=== PATIENT | female | born 1975 | race Caucasian/White ===

== ENCOUNTER 2016-08-12 16:10 | Emergency (ER) | payer OTHER ==
[~2016-08-12] VITALS: Ht 160 cm; Wt 74.8 kg
[~2016-08-12 16:10] MED LIST: ANUSOL HC-HEMOR1 SUP RC; LIDOCAINE5% TOP; Motrin PO; VITAFOL-ONE1 SGL PO
[2016-08-12 16:18] VITALS: BP 100/60
--- NOTE | 2016-08-12 16:51 | ED SKIN/ALLERGY COMPLAINT ---
History of Present Illness General Chief Complaint: Skin Rash/ Abcess Stated Complaint: ?POISON SMOOTH Source: patient, old records Exam Limitations: no limitations Vital Signs & Intake/Output Vital Signs & Intake/Output Vital Signs Date Time Temp Pulse Resp B/P B/P Pulse O2 O2 Flow FiO2 Mean Ox Delivery Rate 08/12 1618 97.0 70 20 100/60 99 Room Air Allergies Coded Allergies: NO KNOWN ALLERGIES (06/15/15) Reconcile Medications Anusol Hc (Anusol Hc-Hemorrhoidal Hc Supp) 1 SUP SUP 1 SUP RC BID HEMORRHOID Hydroxyzine HCl 50 MG TABLET 1 TAB PO TID PRN ITCHING Lidocaine 5% OIN 1 MALINDA TOP Q6 PRN HEMORRHOID PAIN [Motrin] 800 MG PO Q6P PRN PAIN SCALE 4-6 PNV#26/IRON POLY/FA/DHA (Vitafol-One Capsule) 1 SGL SGL 1 CAP PO DAILY (Reported) Prednisone 10 MG TABLET 0 PO DAILY dermatitis 6 tabspo day 1 5 tabs po day 2 4 tabs poday 3 3 tabs po day 4 2 tabs po day 5 1 tab po day 6 Triage Note: PT TO ED C/O ? POISON SMOOTH ALL OVER. STATES SHE WAS WORKING OUTSIDE YESTERDAY, RIGHT AFTER SHE NOTICED A RASH WITH ITCHING. TOOK BENADRYL WITH NO RELIEF. STATES IT IS SPREADING AND MORE ITCHY TODAY. LAST BENADRYL 4 HOURS AGO. Triage Nurses Notes Reviewed? yes Onset: Abrupt Duration: day(s): (2), constant Timing: recent history Severity: moderate Severity Numbers: 6 Location: extremities No Modifying Factors: none Associated Symptoms: DENIES : No Patient currently breastfeeds: No HPI: 40-year-old female presents to ER complaining of poison smooth to her arms after working outside yesterday. She's been taking Benadryl without improvement. Her son presents with similar symptoms. She states she's had a history of similar episodes in the past. No fever no chills no recent tick or insect bites. No nausea vomiting. No modifying factors or associated symptoms otherwise. (OKSANA MAIN,SHAWN) Past History Travel History Traveled to [place] past 21 day No Medical History Any Pertinent Medical History? see below for history Neurological: NONE EENT: NONE Cardiovascular: NONE Respiratory: NONE Gastrointestinal: NONE Hepatic: NONE Renal: NONE Musculoskeletal: NONE Psychiatric: depression Endocrine: NONE Blood Disorders: NONE Cancer(s): NONE VISUAL AND STOCK ASSOCIATE/Reproductive: NONE Other Medical Hx: , 31 weeks Hemorrhoid Gestational diabetes Surgical History Surgical History: non-contributory Psychosocial History What is your primary language Mohawk Tobacco Use: Quit <30 days ago ETOH Use: denies use Illicit Drug Use: denies illicit drug use Family History Hx Contributory? No (SHAWN GOODMAN) Review of Systems Review of Systems Constitutional: Reports: see HPI. All Other Systems: Reviewed and Negative Comments Review of systems: See HPI, All other systems negative. Constitutional, no chills no fever, no malaise HEENT: No visual changes no sore throat Cardiovascular: No chest pain , no palpitation Skin: no rashes, no change in skin Respiratory: No dyspnea no cough no sputum GI: No nausea no vomiting, no diarrhea, no bloating/constipation : No dysuria No hematuria Muscle skeletal: No joint pain, no joint swelling, no back pain, no neck pain, Neurologic: no headache Psych: No stress Heme/endocrine: No bruising Immunology: No lymphadenopathy (SHAWN GOODMAN) Physical Exam Physical Exam General Appearance: well developed/nourished, no apparent distress, alert, awake , comfortable Comments: Well-developed well-nourished patient in no apparent distress. HEENT: Atraumatic, extraocular motion intact Neck: Supple, FROM Back: FROM Cardiovascular: Regular rate and rhythms no murmurs rubs or gallops, Respiratory: No respiratory distress. Patient speaking in full complete sentences. Breath sounds clear to auscultation bilaterally: NO W/R/R Extremities: full range of motion Neuro: awake, alert, and oriented to person, place and time. There were no obvious focal neurologic abnormalities. Skin: Warm & dry; maculopapular rash noted to bilateral volar upper extremities Psych: Mood affect normal, normal memory normal judgment. (SHAWN GOODMAN) Progress Differential Diagnosis: abscess/cellulitis, allergic reaction, anaphylaxis, angioedema, contact dermatitis, lyme disease, urticaria Plan of Care: Current Medications Sig/Clotilde Start time Last Medication Dose Stop Time Status Admin Prednisone 60 MG ONCE ONE 08/12 1700 AC 08/12 170 I had an extensive conversation regarding need for close follow up with their primary care physician this week as well as return precautions. I answered all of their questions, they feel comfortable with the plan and follow-up care. I discussed with the patient/family the medications that they will receive. I gave them signs and symptoms that could indicate an adverse reaction. I have advised them to limit their activities until they can see how they respond to the medication. (SHAWN GOODMAN) Departure Departure Time of Disposition: 1657 Disposition: HOME OR SELF CARE Condition: Stable Clinical Impression Primary Impression: Contact dermatitis Referrals: KAEL WINN (PCP/Family) Additional Instructions: Prednisone as directed and ANTIVERT for itching. Follow-up with her primary care physician and return to ER with any concerns [facility] Departure Forms: Customer Survey General Discharge Information Prescriptions: Current Visit Scripts Prednisone 0 PO DAILY #21 TAB 6 tabspo day 1 5 tabs po day 2 4 tabs poday 3 3 tabs po day 4 2 tabs po day 5 1 tab po day 6 Hydroxyzine HCl 1 TAB PO TID PRN ITCHING #30 TAB (SHAWN GOODMAN) PA/APPLIED BEHAVIOR SPECIALIST Co-Sign Statement Statement: ED Attending supervision documentation- I saw and evaluated the patient. I have also reviewed all the pertinent lab results and diagnostic results. I agree with the findings and the plan of care as documented in the PA's/APPLIED BEHAVIOR SPECIALIST's documentation. x I have reviewed the ED Record and agree with the PA's/APPLIED BEHAVIOR SPECIALIST's documentation. [] Additions or exceptions (if any) to the PAs/APPLIED BEHAVIOR SPECIALIST's note and plan are summarized below: [] (CORBY LEIVA,KISHAN)
[2016-08-12] MEDS ORDERED: PREDNISONE10 M2 PO (17:00)
[2016-08-12] MEDS ORDERED: HYDROXYZINE HCL50 M1 PO (17:00)
== END 2016-08-12 17:14 ==
LOC: ERH 16:10
DX: L25.9 Unspecified contact dermatitis, unspecified cause (principal)

== ENCOUNTER → 2017-07-17 | Day surgery (SDC) | payer OTHER ==
[~2017-07-17] MED LIST changes: +CHANTIX1 MG PO; +HYDROXYZINE HCL50 M1 PO; +NITROFURANTOIN100 M5 PO; +PREDNISONE10 M2 PO
--- NOTE | 2017-07-18 12:10 | Operative Report ---
Operative/Inv Procedure Report Surgery Date: 07/17/17 Name of Procedure: Laparoscopic tubal sterilization D&C aspiration of cyst fluid from cul-de-sac Pre-Operative Diagnosis: Pricey conception multiparity Post-Operative Diagnosis: Same ruptured left ovarian cyst Estimated Blood Loss: 50ml to 100ml Surgeon/Drying Rack Changer: Rachna Briscoe MD and medical student [employer] Anesthesia: general endotracheal tube Operative/Procedure Note Note: Procedure note patient was taken to the operating room placed supine position after adequate induction general anesthesia via endotracheal tube patient was placed in dorsal lithotomy dorsal supine position the abdomen was prepped and draped so fashion the vagina prepped draped so fashion bladder was catheterized using Mariscal a single-tooth tenaculum was placed on the Intralipid cervix gentle downward traction patient tolerated that well at this point cervix is dilated to 29 Hegar for left the sharp curettage of the endometrial lining endometrial biopsy was sent to pathology surgeon regowned and gloved at after placing the colon into the vagina at this point I the abdomen had been prepped and draped so fashion a stab incision made at the umbilicus through that stab incision the Veress needle was inserted with a negative drop test the abdomen was insufflated possibly fully Z CO2 to liver edge dullness at which point the Veress needle was removed a 10 mm trocar was inserted atraumatically the umbilicus sheath remained placed through that sheath a laparoscope was placed under direct visualization a 5 mm port was placed 2 fingerbreadths of symptoms pubis in the midline patient tolerated that well right tube was picked up carried to its fimbriated end possibly 7 cm that tube Bovie coagulated left tube was picked up carried to its fimbriated end possibly 7 seconds that tube Bovie coag patient tolerated that well at this point maximal CO2 was removed from the abdomen the fluid behind the uterus had been sent off to pathology was consistent rupture of the left ovarian cyst patient tolerated surgery well wants was removed from the abdomen incision at the umbilicus was oversewn using 0 for the fascia 3L was used to reapproximate both skin incisions with interrupted Marcaine was injected underneath the skin sterile dressings were applied the counts were correct the patient was returned spine position she was extubated awakened from anesthesia and transported to the recovery room awake and alert Findings: Normal uterus serosanguineous fluid and evidence of rupture on the left ovarian cyst proximal 4 cm otherwise normal anatomy I scanty tissue inside the uterus
== END ==
LOC: STS 03:18
DX: Z30.2 Encounter for sterilization (principal); N83.202 Unspecified ovarian cyst, left side; Z64.1 Problems related to multiparity; F17.200 Nicotine dependence, unspecified, uncomplicated
CPT/HCPCS: 81025; 88305; J0131; J2250; J3490